=== PATIENT | female | born 1940 | race Caucasian/White ===

== ENCOUNTER 2020-11-29 14:01 | Inpatient (IN) ==
[2020-11-29] MEDS ORDERED: Acetaminophen 325 MG TABLET PO PRN (22:00)
[2020-11-29] MEDS: Gabapentin 300 MG CAPSULE PO SCH (23:00)
[2020-11-29] MEDS: *HR* HYDROcodone/Acet 5/325 mg TABLET PO PRN (23:00)
[2020-11-30 04:55] LABS: Basophils # 0.1 K/mcL (0.0-0.2); Basophils % 0.7 %; Eosinophils # 0.2 K/mcL (0.0-0.6); Eosinophils % 2.7 %; Hematocrit 32.6 % (35.3-44.9); Hemoglobin 10.6 g/dL (11.5-15.4); Immature Granulocytes % 0.8 % (0-4); Lymphocytes # 1.1 K/mcL (0.6-4.6); Lymphocytes % 13.5 %; Mean Corpuscular HGB Conc 32.5 g/dL (31.6-35.5); Mean Corpuscular Volume 95.3 fL (83.0-100.0); Mean Platelet Volume 10.6 fL (9.4-12.4); Monocytes # 1.3 K/mcL (0.0-1.3); Monocytes % 15.3 %; Neutrophils # 5.5 K/mcL (1.6-8.9); Nucleated Red Blood Cells 0.2 /100 WBC (0); Platelet Count 196 K/mcL (140-400); Red Blood Count 3.42 M/mcL (3.82-4.97); Red Cell Distribution Width 11.9 % (11.5-14.5); White Blood Count 8.3 K/mcL (4.3-11.1)
[2020-11-30 05:25] LABS: BUN/Creatinine Ratio 18 (6-26); Blood Urea Nitrogen 8 mg/dL (8-23); Calcium 9.3 mg/dL (8.6-10.3); Carbon Dioxide 29 mEq/L (23-29); Chloride 93 mEq/L (98-107); Glucose 124 mg/dL (70-105); Osmolality,Calculated 274 (280-300); Potassium 4.9 mEq/L (3.5-5.1); Sodium 132 mEq/L (136-145); eGFR For African Americans > 60 (> 60); eGFR For Non-African Americans > 60 (> 60)
[2020-11-30] MEDS: *HR* HYDROcodone/Acet 5/325 mg TABLET PO PRN (05:59)
[2020-11-30] MEDS ORDERED: hydrOXYzine pamoate 25 MG CAPSULE PO SCH (09:00)
[2020-11-30] MEDS: Lactobacillus 1 EACH CAP.SPRINK PO SCH ×2 (09:55→22:06)
[2020-11-30] MEDS: *HR* Rivaroxaban 15 MG TABLET PO SCH ×2 (09:55→22:06)
[2020-11-30] MEDS: Cefdinir 300 MG CAPSULE PO SCH ×2 (09:55→22:07)
[2020-11-30] MEDS: Gabapentin 300 MG CAPSULE PO SCH ×2 (09:55→22:12)
[2020-11-30] MEDS: Aspirin Enteric Coated 81 MG Tablet PO SCH (09:55)
[2020-11-30] MEDS ORDERED: MOM Conc 10 ML UD.LIQ PO PRN (10:23)
[2020-11-30] MEDS ORDERED: Bisacodyl 10 MG RECTAL SUPPOSITORY RC PRN (10:23)
[2020-11-30] MEDS ORDERED: *HR* HYDROcodone/Acet 5/325 mg TABLET PO PRN (10:30)
[2020-11-30] MEDS: *HR* OxyCODONE Immed Rel 5 MG TABLET PO PRN ×2 (14:31→22:10)
[2020-11-30] MEDS: Sennosides 8.6 MG TABLET PO SCH (22:17)
[2020-11-30] MEDS: hydrOXYzine pamoate 25 MG CAPSULE PO SCH (22:17)
[2020-12-01] MEDS ORDERED: Lactulose Oral Soln 20 GM/30 ML UDC PO PRN (00:43)
[2020-12-01] MEDS: Cefdinir 300 MG CAPSULE PO SCH ×2 (07:54→20:40)
[2020-12-01] MEDS: Gabapentin 300 MG CAPSULE PO SCH ×2 (07:54→20:43)
[2020-12-01] MEDS: *HR* OxyCODONE Immed Rel 5 MG TABLET PO PRN (07:54)
[2020-12-01] MEDS: Aspirin Enteric Coated 81 MG Tablet PO SCH (07:54)
[2020-12-01] MEDS: *HR* Rivaroxaban 15 MG TABLET PO SCH ×2 (07:54→20:41)
[2020-12-01] MEDS: Sennosides 8.6 MG TABLET PO SCH (07:54)
[2020-12-01] MEDS: Lactobacillus 1 EACH CAP.SPRINK PO SCH ×2 (07:55→20:42)
[2020-12-01] MEDS: polyethylene glycoL 3350 17 GM POWD.PACK PO SCH (07:55)
[2020-12-01] MEDS: *HR* HYDROcodone/Acet 5/325 mg TABLET PO PRN (15:50)
[2020-12-02] MEDS: Sennosides 8.6 MG TABLET PO SCH ×3 (02:47→19:49)
[2020-12-02] MEDS: hydrOXYzine pamoate 25 MG CAPSULE PO SCH ×2 (02:47→19:50)
[2020-12-02] MEDS: Gabapentin 300 MG CAPSULE PO SCH ×2 (07:50→19:49)
[2020-12-02] MEDS: polyethylene glycoL 3350 17 GM POWD.PACK PO SCH (07:51)
[2020-12-02] MEDS: *HR* Rivaroxaban 15 MG TABLET PO SCH ×2 (07:51→19:50)
[2020-12-02] MEDS: Lactobacillus 1 EACH CAP.SPRINK PO SCH ×2 (07:51→19:49)
[2020-12-02] MEDS: Aspirin Enteric Coated 81 MG Tablet PO SCH (07:51)
[2020-12-02] MEDS: *HR* HYDROcodone/Acet 5/325 mg TABLET PO PRN (16:27)
[2020-12-03] MEDS: *HR* HYDROcodone/Acet 5/325 mg TABLET PO PRN ×4 (00:24→20:47)
[2020-12-03] MEDS: Gabapentin 300 MG CAPSULE PO SCH ×2 (09:59→20:46)
[2020-12-03] MEDS: Lactobacillus 1 EACH CAP.SPRINK PO SCH ×2 (09:59→20:46)
[2020-12-03] MEDS: Aspirin Enteric Coated 81 MG Tablet PO SCH (09:59)
[2020-12-03] MEDS: *HR* Rivaroxaban 15 MG TABLET PO SCH ×2 (10:00→20:47)
[2020-12-03] MEDS: Sennosides 8.6 MG TABLET PO SCH ×2 (10:00→20:46)
[2020-12-03] MEDS: polyethylene glycoL 3350 17 GM POWD.PACK PO SCH (10:00)
[2020-12-03] MEDS: hydrOXYzine pamoate 25 MG CAPSULE PO SCH (20:47)
[2020-12-04] MEDS: *HR* HYDROcodone/Acet 5/325 mg TABLET PO PRN ×4 (00:55→19:59)
[2020-12-04] MEDS: Aspirin Enteric Coated 81 MG Tablet PO SCH (09:19)
[2020-12-04] MEDS: Gabapentin 300 MG CAPSULE PO SCH ×2 (09:19→19:59)
[2020-12-04] MEDS: *HR* Rivaroxaban 15 MG TABLET PO SCH ×2 (09:19→19:58)
[2020-12-04] MEDS: Lactobacillus 1 EACH CAP.SPRINK PO SCH ×2 (09:19→19:58)
[2020-12-04] MEDS: Sennosides 8.6 MG TABLET PO SCH ×2 (09:19→19:58)
[2020-12-04] MEDS: polyethylene glycoL 3350 17 GM POWD.PACK PO SCH (09:20)
[2020-12-04] MEDS: hydrOXYzine pamoate 25 MG CAPSULE PO SCH (19:58)
[2020-12-05] MEDS: *HR* HYDROcodone/Acet 5/325 mg TABLET PO PRN ×5 (05:51→20:32)
[2020-12-05] MEDS: Aspirin Enteric Coated 81 MG Tablet PO SCH (08:45)
[2020-12-05] MEDS: Lactobacillus 1 EACH CAP.SPRINK PO SCH ×2 (08:45→20:32)
[2020-12-05] MEDS: Gabapentin 300 MG CAPSULE PO SCH ×2 (08:45→20:32)
[2020-12-05] MEDS: Sennosides 8.6 MG TABLET PO SCH ×2 (08:45→20:33)
[2020-12-05] MEDS: *HR* Rivaroxaban 15 MG TABLET PO SCH ×2 (08:45→20:32)
[2020-12-05] MEDS: polyethylene glycoL 3350 17 GM POWD.PACK PO SCH (08:46)
[2020-12-05] MEDS: hydrOXYzine pamoate 25 MG CAPSULE PO SCH (20:33)
[2020-12-06] MEDS: *HR* HYDROcodone/Acet 5/325 mg TABLET PO PRN ×3 (00:46→12:26)
[2020-12-06 07:42] VITALS: BP 153/74; PULSE 69; RESP 16; TEMP 97.9; O2SAT 96
[2020-12-06] MEDS: *HR* Rivaroxaban 15 MG TABLET PO SCH (08:07)
[2020-12-06] MEDS: Gabapentin 300 MG CAPSULE PO SCH (08:07)
[2020-12-06] MEDS: Sennosides 8.6 MG TABLET PO SCH (08:07)
[2020-12-06] MEDS: Lactobacillus 1 EACH CAP.SPRINK PO SCH (08:07)
[2020-12-06] MEDS: Aspirin Enteric Coated 81 MG Tablet PO SCH (08:07)
[2020-12-06] MEDS: polyethylene glycoL 3350 17 GM POWD.PACK PO SCH (08:08)
[2020-12-22] MEDS ORDERED: *HR* Rivaroxaban 10 MG TABLET PO SCH (09:00)
== END 2020-12-06 15:01 | disposition home or self-care (01) | DRG 560 ==
LOC: INPGRE 19:40
PROVIDERS: ADMIT Family Medicine; ATTEND Family Medicine

== ENCOUNTER 2021-02-14 18:29 | Inpatient (IN) ==
[2021-02-15] MEDS: Gabapentin 300 MG CAPSULE PO SCH (21:23)
[2021-02-15] MEDS: *HR* OxyCODONE Immed Rel 5 MG TABLET PO PRN (21:24)
[2021-02-15] MEDS: cephALEXin 500 MG CAPSULE PO SCH (21:24)
[2021-02-16] MEDS: *HR* OxyCODONE Immed Rel 5 MG TABLET PO PRN ×2 (05:12→10:32)
[2021-02-16] MEDS: Acetaminophen 325 MG TABLET PO PRN (05:12)
[2021-02-16] MEDS: cephALEXin 500 MG CAPSULE PO SCH ×3 (08:43→20:39)
[2021-02-16] MEDS: Gabapentin 300 MG CAPSULE PO SCH ×2 (08:43→20:40)
[2021-02-16 10:22] LABS: Basophils % 0.2 %; Eosinophils # 0.1 K/mcL (0.0-0.6); Eosinophils % 1.4 %; Hematocrit 31.7 % (35.3-44.9); Hemoglobin 10.5 g/dL (11.5-15.4); Immature Granulocytes % 0.7 % (0-4); Lymphocytes # 1.1 K/mcL (0.6-4.6); Lymphocytes % 12.7 %; Mean Corpuscular HGB Conc 33.1 g/dL (31.6-35.5); Mean Corpuscular Hemoglobin 30.2 pg (28.0-33.3); Mean Corpuscular Volume 91.1 fL (83.0-100.0); Mean Platelet Volume 10.1 fL (9.4-12.4); Monocytes # 1.1 K/mcL (0.0-1.3); Monocytes % 12.4 %; Neutrophils # 6.5 K/mcL (1.6-8.9); Platelet Count 297 K/mcL (140-400); Red Blood Count 3.48 M/mcL (3.82-4.97); Segmented Neutrophils % 72.6 %
[2021-02-16 10:41] LABS: Alanine Aminotransferase 12 Units/L (7-52); Albumin 3.5 g/dL (3.5-5.7); Albumin/Globulin Ratio 1.1 (1.1-2.2); Alkaline Phosphatase 82 Units/L (34-104); Aspartate Amino Transferase 35 Units/L (13-39); BUN/Creatinine Ratio 13 (6-26); Bilirubin,Total 0.6 mg/dL (0.3-1.0); Blood Urea Nitrogen 6 mg/dL (8-23); Calcium 8.9 mg/dL (8.6-10.3); Carbon Dioxide 30 mEq/L (23-29); Chloride 90 mEq/L (98-107); Globulin 3.2 g/dL (2.4-3.5); Glucose 117 mg/dL (70-105); Osmolality,Calculated 271 (280-300); Potassium 3.4 mEq/L (3.5-5.1); Sodium 131 mEq/L (136-145); Total Protein 6.7 g/dL (6.4-8.9); eGFR For African Americans > 60 (> 60); eGFR For Non-African Americans > 60 (> 60)
[2021-02-16] MEDS ORDERED: Bisacodyl 10 MG RECTAL SUPPOSITORY RC PRN (15:22)
[2021-02-16] MEDS ORDERED: Lactulose Oral Soln 20 GM/30 ML UDC PO PRN (15:22)
[2021-02-16] MEDS: polyethylene glycoL 3350 17 GM POWD.PACK PO SCH (15:30)
[2021-02-16] MEDS: *HR* OxyCODONE/APAP 7.5/325 TABLET PO PRN ×2 (15:30→22:47)
[2021-02-16 18:45] LABS: Bilirubin,Urine Negative (Negative); Blood,Urine Negative (Negative); Clarity,Urine Clear (Clear); Color,Urine Yellow (Yellow); Glucose,Urine (UA) Normal (Normal); Ketones,Urine Negative (Negative); Leukocyte Esterase,Urine Negative (Negative); Nitrite,Urine Negative (Negative); PH,Urine 6.5 pH Units (5.0-8.0); Protein,Urine 30 mg/dL (Neg-Trace); Urobilinogen,Urine Normal (Normal)
[2021-02-16 18:56] LABS: Bacteria,Urine None Seen per hpf (None-Few); Mucus,Urine Few per lpf (None-Few); RBC,Urine 0-3 per hpf (0-3); Squamous Epithelial Cell,Urine Few per hpf (None-Few); WBC,Urine 0-3 per hpf (0-3)
[2021-02-16] MEDS: Sennosides/Docusate Sodium TABLET PO SCH (20:40)
[2021-02-17] MEDS: Sennosides/Docusate Sodium TABLET PO SCH ×2 (07:45→20:11)
[2021-02-17] MEDS: *HR* OxyCODONE/APAP 7.5/325 TABLET PO PRN ×3 (07:45→18:55)
[2021-02-17] MEDS: polyethylene glycoL 3350 17 GM POWD.PACK PO SCH (07:46)
[2021-02-17] MEDS: cephALEXin 500 MG CAPSULE PO SCH ×3 (07:46→20:11)
[2021-02-17] MEDS: Gabapentin 300 MG CAPSULE PO SCH ×2 (07:46→20:10)
[2021-02-18] MEDS: *HR* OxyCODONE Immed Rel 5 MG TABLET PO PRN ×3 (05:59→21:26)
[2021-02-18] MEDS: polyethylene glycoL 3350 17 GM POWD.PACK PO SCH (07:54)
[2021-02-18] MEDS: cephALEXin 500 MG CAPSULE PO SCH ×3 (07:54→21:22)
[2021-02-18] MEDS: Sennosides/Docusate Sodium TABLET PO SCH ×2 (07:54→21:22)
[2021-02-18] MEDS: Gabapentin 300 MG CAPSULE PO SCH ×2 (07:54→21:22)
[2021-02-19] MEDS: *HR* OxyCODONE Immed Rel 5 MG TABLET PO PRN ×3 (04:11→22:21)
[2021-02-19 06:02] LABS: Hematocrit 26.9 % (35.3-44.9); Hemoglobin 8.8 g/dL (11.5-15.4); Mean Corpuscular HGB Conc 32.7 g/dL (31.6-35.5); Mean Corpuscular Hemoglobin 29.7 pg (28.0-33.3); Mean Corpuscular Volume 90.9 fL (83.0-100.0); Platelet Count 311 K/mcL (140-400); Red Blood Count 2.96 M/mcL (3.82-4.97); Red Cell Distribution Width 14.3 % (11.5-14.5); White Blood Count 9.5 K/mcL (4.3-11.1)
[2021-02-19] MEDS: *HR* OxyCODONE/APAP 7.5/325 TABLET PO PRN ×2 (06:39→14:55)
[2021-02-19] MEDS: Sennosides/Docusate Sodium TABLET PO SCH ×2 (07:51→22:17)
[2021-02-19] MEDS: polyethylene glycoL 3350 17 GM POWD.PACK PO SCH (07:52)
[2021-02-19] MEDS: Gabapentin 300 MG CAPSULE PO SCH ×2 (07:53→22:16)
[2021-02-19] MEDS: cephALEXin 500 MG CAPSULE PO SCH ×3 (07:53→22:17)
[2021-02-19 08:08] LABS: Alanine Aminotransferase 21 Units/L (7-52); Albumin 3.1 g/dL (3.5-5.7); Albumin/Globulin Ratio 1.2 (1.1-2.2); Alkaline Phosphatase 68 Units/L (34-104); Aspartate Amino Transferase 31 Units/L (13-39); BUN/Creatinine Ratio 24 (6-26); Bilirubin,Total 0.4 mg/dL (0.3-1.0); Blood Urea Nitrogen 7 mg/dL (8-23); Calcium 8.3 mg/dL (8.6-10.3); Carbon Dioxide 29 mEq/L (23-29); Chloride 93 mEq/L (98-107); Globulin 2.6 g/dL (2.4-3.5); Glucose 110 mg/dL (70-105); Magnesium 2.1 mg/dL (1.6-2.6); Osmolality,Calculated 269 (280-300); Sodium 130 mEq/L (136-145); Total Protein 5.7 g/dL (6.4-8.9); eGFR For African Americans > 60 (> 60); eGFR For Non-African Americans > 60 (> 60)
[2021-02-20] MEDS: Gabapentin 300 MG CAPSULE PO SCH ×2 (08:50→21:28)
[2021-02-20] MEDS: *HR* OxyCODONE Immed Rel 5 MG TABLET PO PRN ×2 (08:51→21:29)
[2021-02-20] MEDS: Sennosides/Docusate Sodium TABLET PO SCH ×2 (08:52→21:30)
[2021-02-20] MEDS: cephALEXin 500 MG CAPSULE PO SCH ×3 (08:52→21:28)
[2021-02-20] MEDS: polyethylene glycoL 3350 17 GM POWD.PACK PO SCH (08:52)
[2021-02-20] MEDS: tiZANidine 4 MG TABLET PO SCH ×2 (15:41→21:28)
[2021-02-21] MEDS: *HR* OxyCODONE Immed Rel 5 MG TABLET PO PRN ×4 (00:45→20:27)
[2021-02-21 04:32] LABS: Hematocrit 26.6 % (35.3-44.9); Hemoglobin 8.7 g/dL (11.5-15.4); Mean Corpuscular HGB Conc 32.7 g/dL (31.6-35.5); Mean Corpuscular Hemoglobin 30.1 pg (28.0-33.3); Mean Platelet Volume 10.2 fL (9.4-12.4); Platelet Count 322 K/mcL (140-400); Red Blood Count 2.89 M/mcL (3.82-4.97); Red Cell Distribution Width 14.2 % (11.5-14.5); White Blood Count 7.3 K/mcL (4.3-11.1)
[2021-02-21 04:46] LABS: BUN/Creatinine Ratio 20 (6-26); Blood Urea Nitrogen 7 mg/dL (8-23); Calcium 8.8 mg/dL (8.6-10.3); Carbon Dioxide 29 mEq/L (23-29); Chloride 95 mEq/L (98-107); Glucose 108 mg/dL (70-105); Magnesium 2.5 mg/dL (1.6-2.6); Osmolality,Calculated 269 (280-300); Potassium 4.5 mEq/L (3.5-5.1); Sodium 130 mEq/L (136-145); eGFR For African Americans > 60 (> 60); eGFR For Non-African Americans > 60 (> 60)
[2021-02-21] MEDS: Gabapentin 300 MG CAPSULE PO SCH ×2 (07:45→20:28)
[2021-02-21] MEDS: cephALEXin 500 MG CAPSULE PO SCH ×3 (07:45→20:26)
[2021-02-21] MEDS: Sennosides/Docusate Sodium TABLET PO SCH ×2 (07:46→20:26)
[2021-02-21] MEDS: polyethylene glycoL 3350 17 GM POWD.PACK PO SCH (07:46)
[2021-02-21] MEDS ORDERED: SUMAtriptan succinate 25 MG TABLET PO ONE ×2 (08:08→11:30)
[2021-02-21] MEDS: Acetaminophen 325 MG TABLET PO PRN (09:51)
[2021-02-21] MEDS: tiZANidine 4 MG TABLET PO SCH ×3 (09:51→20:26)
[2021-02-22] MEDS: *HR* OxyCODONE Immed Rel 5 MG TABLET PO PRN ×3 (02:23→19:42)
[2021-02-22] MEDS: Gabapentin 300 MG CAPSULE PO SCH ×2 (09:00→19:43)
[2021-02-22] MEDS: cephALEXin 500 MG CAPSULE PO SCH ×3 (09:00→19:43)
[2021-02-22] MEDS: polyethylene glycoL 3350 17 GM POWD.PACK PO SCH (09:01)
[2021-02-22] MEDS: Sennosides/Docusate Sodium TABLET PO SCH ×2 (09:01→19:42)
[2021-02-22] MEDS: tiZANidine 4 MG TABLET PO SCH ×3 (10:11→19:44)
[2021-02-22] MEDS: Acetaminophen 325 MG TABLET PO PRN (10:11)
[2021-02-22] MEDS ORDERED: Ketorolac 30 MG/ML VIAL IM ONE (12:10)
[2021-02-23] MEDS: tiZANidine 4 MG TABLET PO SCH ×3 (07:39→20:25)
[2021-02-23] MEDS: cephALEXin 500 MG CAPSULE PO SCH ×3 (07:39→20:26)
[2021-02-23] MEDS: Gabapentin 300 MG CAPSULE PO SCH ×2 (07:39→20:25)
[2021-02-23] MEDS: polyethylene glycoL 3350 17 GM POWD.PACK PO SCH (07:40)
[2021-02-23] MEDS: Sennosides/Docusate Sodium TABLET PO SCH (07:40)
[2021-02-23 21:12] VITALS: O2SAT 96
[2021-02-24] MEDS: *HR* OxyCODONE Immed Rel 5 MG TABLET PO PRN (01:33)
[2021-02-24 07:32] VITALS: BP 146/68; PULSE 76; RESP 16; TEMP 97.9
[2021-02-24] MEDS: cephALEXin 500 MG CAPSULE PO SCH ×2 (08:21→13:12)
[2021-02-24] MEDS: Gabapentin 300 MG CAPSULE PO SCH (08:21)
[2021-02-24] MEDS: tiZANidine 4 MG TABLET PO SCH ×2 (08:21→13:12)
[2021-02-24] MEDS: polyethylene glycoL 3350 17 GM POWD.PACK PO SCH (09:05)
== END 2021-02-24 14:00 | disposition home or self-care (01) | DRG 560 ==
LOC: INPGRE 02-15 19:42
PROVIDERS: ADMIT Family Medicine; ATTEND Family Medicine